=== PATIENT | female | born 1965 | race Caucasian/White ===

== ENCOUNTER → 2018-12-30 | Outpatient (CLI) | payer OTHER ==
[~2018-12-30] MED LIST: ASPIR 8181 MG PO; BYSTOLIC 5 MG5 M1; BYSTOLIC2.5 MG; CLONAZEPAM 1 MG1 M1; COZAAR; DOXYCYCLINE 10100 MG PO; FISH OIL 1,001000 M2; FLAGYL500 MG; MACROBID 100 M100 M1 PO; MAGOX 400400 MG PO; NORCO 5-325 TA1 EACH PO; NORTREL1 EAC1; SERTRALINE HCL50 MG; UNICOMPLEX M TA1 TA1; VITAMIN B-1100 M1; VITAMIN D1000 UNI1; XANAX 0.5 MG0.5 M1
== END ==
LOC: M.RAD 15:43
DX: Z12.31 Encounter for screening mammogram for malignant neoplasm of breast (principal)

== ENCOUNTER → 2020-04-27 | Outpatient (CLI) | payer BC | LOC: M.RAD 09:34 | PROVIDERS: ATTEND Obstetrics & Gynecology | DX: Z12.31 Encounter for screening mammogram for malignant neoplasm of breast (principal) ==

== ENCOUNTER → 2021-06-05 | Outpatient (CLI) | payer BC | LOC: M.RAD 10:26 | PROVIDERS: ATTEND Family Medicine | DX: Z12.31 Encounter for screening mammogram for malignant neoplasm of breast (principal) ==